=== PATIENT | male | born 1990 | race Caucasian/White ===

== ENCOUNTER 2017-01-18 11:36 | Emergency (ER) | payer BC, OTHER ==
[2017-01-18 11:55] VITALS: BP 134/84
--- NOTE | 2017-01-18 12:39 | EDM.PDOC ---
ED HPI GENERAL MEDICAL PROBLEM - General Chief Complaint: Upper Extremity Injury/Pain Stated Complaint: LT HAND PUNCTURE WOUND Time Seen by Provider: 01/18/17 12:37 Source of Information: Reports: Patient History Limitations: Reports: No Limitations - History of Present Illness INITIAL COMMENTS - FREE TEXT/NARRATIVE: 26-year-old male presents for evaluation and treatment of a puncture wound to the left hand. Reports of the wound occurred around 10:30 this morning. He states that he was using a screwdriver. Reports that there is a lubricant on it with an abrasive component consisting of sand and possibly glass. He states that the puncture wound through his left hand between his thumb and second finger. Reports tenderness and pain. Denies any numbness, tingling or decreased range of motion. Tetanus is up-to-date. Reports that he had a tetanus a couple of years ago. Location: Reports: Upper Extremity, Left Left Hand Pain Score (Numeric/FACES): 5 - Related Data Allergies Allergy/AdvReac Type Severity Reaction Status Date / Time No Known Allergies Allergy Verified 01/18/17 11:50 Home Meds: Home Meds Cephalexin 500 mg PO TID #30 capsule 01/18/17 [Rx] Past Medical History - Past Health History Medical/Surgical History: Denies Medical/Surgical History Social & Family History - Tobacco Use Smoking Status *Q: Never Smoker - Recreational Drug Use Recreational Drug Use: No Review of Systems - Review of Systems Review Of Systems: See Below Musculoskeletal: Reports: Hand Pain (tenderness to wound; minor swelling to area ), Other (do decreased ROM) Skin: Reports: Wound (left hand in between thumb and pointer finger ventral side ) Neurological: Denies: Numbness, Tingling Trauma Exam - Physical Exam Exam: See Below Exam Limited By: No Limitations General Appearance: Reports: Alert, WD/WN, No Apparent Distress Respiratory Exam: Reports: No Respiratory Distress Cardiovascular: Reports: Normal Peripheral Pulses, Regular Rate, Rhythm Extremities: Normal Range of Motion (able to make a fist; oppose fingers to thumb, flex and extend digits and adduct and abduct thumb; minor discomfort wiht movement able to preform motions wiht and without resistance; cap refill < 2 sec. tpo the left fingers ) Neurologic: Reports: Alert, Normal Mood/Affect Skin: Reports: Normal Color, Warm/Dry, Other (approximately 1cm in diameter puncture wound to the ventral left hand in between the thumb and pointer finger) Course - Vital Signs Last Recorded V/S: Last Vital Signs Temp 36.7 C 01/18/17 11:52 Pulse 91 01/18/17 11:52 Resp BP 134/84 01/18/17 11:52 Pulse Ox 100 01/18/17 11:52 - Radiology Interpretation Free Text/Narrative:: 4 view of the left hand xray impression per Dr. Brown: 1. No abnormality is identified on left hand study. - Re-Assessments/Exams Free Text/Narrative Re-Assessment/Exam: 01/18/17 14:00 Discussed the x-ray results with the patient's . Area was irrigated with saline and surclesn. Tolerated well. No indication for sutures at this time. Will start antibiotics and have patient wear a splint. We will discharge him at this time. Discharge instructions as documented. Departure - Departure Time of Disposition: 14:00 Disposition: Home, Self-Care 01 Condition: good Clinical Impression: Puncture wound - Discharge Information Prescriptions: Cephalexin 500 mg PO TID #30 capsule Instructions: Puncture Wound, [id number] Referrals: PCP,None [Primary Care Provider] - Forms: ED Department Discharge, Return to Work/School Form Additional Instructions: OTC tylenol or motrin as needed for pain relief. wear thumb spika splint x 1 week. cephalexin 1 tab PO tid x 10 days. Take with food. Soak in warm water and epsome salt or dial soap 3-4 times a day for 10-15 minutes. Monitor for signs of worsening infection such as increased erythema, swelling or pus. Please present to the clinic or the ER should this develop. Note for work given. Please return to the ER should your symptoms change or worsen.
--- NOTE | 2017-01-18 14:56 | CR ---
Left hand: Four views of the left hand were obtained. Comparison: No previous left hand study. Joint spaces are maintained. No fracture, dislocation or other bony abnormality is identified. Impression: 1. No abnormality is identified on left hand study. Diagnostic code #1
== END 2017-01-18 14:38 | disposition home or self-care (01) ==
LOC: JD.ED 11:36
DX: S61.432A Puncture wound without foreign body of left hand, initial encounter (principal); W27.0XXA Contact with workbench tool, initial encounter
CPT/HCPCS: 73130-26-LT; 73130-LT; 99283; 99284